=== PATIENT | female | born 1995 | race Caucasian/White ===

== ENCOUNTER 2020-08-06 07:29 | Inpatient (IN) ==
[2020-08-06] MEDS ORDERED: OXYTOCIN 30 UNITS/500 ML BAG IV PRN ×3 (07:31→19:01)
[2020-08-06 07:59] LABS: Hematocrit (blood only) 36.3 % (37-47); Hemoglobin 12.4 g/dL (12.0-16.0); Mean Corpuscular Hemoglobin 27.6 pg (25-34); Mean Corpuscular Volume 80.8 fL (80-100); Mean Platelet Volume 10.9 fL (7.4-10.4); Platelet Count 218 K/uL (130-400); RDW Coefficient of Variation 13.3 % (11.5-14.5); RDW Standard Deviation 38.9 fL (36.4-46.3); Red Blood Count 4.49 M/uL (4.2-5.4)
--- NOTE | 2020-08-06 08:04 | History & Physical Report ---
Date of Service August 06, 2020 Assessment & Plan (1) Post term over 40 weeks: (2) Encounter for induction of labor: admit, iv , labs. cx favorable, start pitocin. fhts categ 1. arom with labor pattern. denies questions and ready to proceed. need covid test. Admission and Anticipated Discharge Date Admission Date: August 06, 2020 History of Present Illness Chief Complaint: planned induction for postdates Primary Care Provider: Jorge Varghese MD 25yo at 40+wks cata presents to L&D with above cc. She has unfavorable cervix and planned postdates induction in am for planned burton ripening balloon this pm. No vb. No rom. +FM. No ctx . PNC c/b sickle cell trait, fob neg PNL rh pos, ri, gbs neg, covid pending. obh: gi gynh: no stds, no abnl paps. Allergies Allergy/AdvReac Type Severity Reaction Status Date / Time No Known Allergies Allergy Unverified 08/06/20 07:45 Home Medications Home Medications Medication Instructions Recorded Confirmed Type prenat.vits,mar,znf-[id number] 1 tab PO DAILY 08/05/20 08/06/20 History [ Vitamin] Patient History Medical History (Updated 08/06/20 @ 08:06 by Jessica Cabrera MD, FACOG) Varicella vaccination Surgical History S/P tonsillectomy S/P wisdom tooth extraction Family History (Updated 12/23/19 @ 09:17 by Elsie Joiner) Grandmother (Paternal) Breast cancer Other Hypertension Sickle cell trait Social History (Updated 12/23/19 @ 08:53 by Elsie Joiner) Smoking Status: Never smoker Hx Alcohol Use: No Hx Substance Use: No Preferred Language: Uzbek Communication Ability: Effective Cleaner Wall Required: No Beliefs That Will Affect Care: None marital status: marital status details: Vance Herbert (29) [phone] Current Living Situation: Spouse Current Living Situation Comment: lives with spouse, dog current occupational status: employed current occupation: RN-medical/oncology [employer] Other Information That Helps Us Care for You: No Feels Safe at Home: Yes Safety Concerns: Feels Safe At This Time Review of Systems no rom, vb. no ctx. +FM. burton balloon in place. Physical Exam Constitutional: WD/WN, vitals as above Respiratory: normal respiratory effort, lungs clear to auscultation Cardiovascular: Rate/Rhythm: regular rate and regular rhythm Gastrointestinal (Abdomen): soft gravid nt Musculoskeletal: no edema nontender calves Neurologic: grossly normal Psychiatric: A+Ox3, euthymic affect Genitourinary: Manual OB Exam: + cervical dilation (4), + cervical effacement (75%) and + station -2 OB Exam Monitor Tracing: + external FHT monitor used (140 mod variability reactive), + external uterine monitor used (irreg), + category I and + normal FHT variability balloon in vagina and deflated and burton removed. Coding Level of Care Code None Diagnoses Post term over 40 weeks O48.0 Encounter for induction of labor Z34.90
[2020-08-06 08:06] LABS: Mean Corpuscular Hgb Conc 34.2 g/dL (32-36)
[2020-08-06] MEDS: LACTATED RINGER'S 1,000 ML IV PRN ×2 (09:02→14:14)
[2020-08-06] MEDS ORDERED: ePHEDrine sulfate 50 MG/ML AMP ONE (13:21)
[2020-08-06] MEDS ORDERED: fentaNYL 2MCG/ML ROPIVACAINE 1.25MG/ML 100 ML BAG EPI ONE (13:21)
[2020-08-06] MEDS ORDERED: fentaNYL citrate 100 MCG/2 ML VIAL ONE (13:21)
[2020-08-06] MEDS ORDERED: BUPIVACAINE 0.25% 30 ML VIAL ONE (13:21)
--- NOTE | 2020-08-06 13:31 | Anesthesiology Consultation ---
Date of Service August 06, 2020 Assessment & Plan (1) Encounter for pre-operative examination: Chart Review Chart Review: Acceptable Risk for Labor Epidural History Height/Weight Height: 5 ft 6 in Weight: 78.018 kg Allergies Allergy/AdvReac Type Severity Reaction Status Date / Time No Known Allergies Allergy Unverified 08/06/20 07:45 Medications Home Medications Medication Instructions Recorded Confirmed Last Taken prenat.vits,mar,sam-apbd-owyno 1 tab PO DAILY 08/05/20 08/06/20 08/05/20 [ Vitamin] Active Medications Generic Name Dose Route Start Last Admin Trade Name Freq PRN Reason Stop Dose Admin Lactated Ringer's 1,000 mls @ 125 mls/hr 08/06/20 07:31 08/06/20 09:02 Lr IV 08/08/20 07:30 125 mls/hr .Q8H PRN Administration L&D Protocol Protocol Oxytocin 30 units in 500 mls @ 9 mls/hr 08/06/20 07:33 08/06/20 12:29 Pitocin IV 08/08/20 07:32 0.54 units/hr .Q24H PRN 9 mls/hr Labor Induction/Augmentation Titration Protocol 0.54 UNITS/HR Past Medical History Medical History Varicella vaccination Past Family History Family History Grandmother (Paternal) Breast cancer Other Hypertension Sickle cell trait Past Surgical History Surgical History S/P tonsillectomy S/P wisdom tooth extraction Social History Smoking Status: Never smoker Hx Alcohol Use: No Hx Substance Use: No substance use type: does not use Physical Exam Vital Signs Last Vital Signs Temp 36.9 C 08/06/20 12:28 Pulse 85 08/06/20 13:11 Resp 18 08/06/20 12:28 BP 127/77 08/06/20 13:11 Testing Laboratory Results 08/06/20 07:46 rapid covid today negative
[2020-08-06] MEDS ORDERED: ONDANSETRON INJ 2 MG/ML 2 ML VIAL IV PRN (14:00)
[2020-08-06] MEDS ORDERED: ePHEDrine sulfate 50 MG/ML AMP IV PRN (14:00)
[2020-08-06] MEDS ORDERED: NALOXONE HCL 0.4 MG/1 ML VIAL/CARP IV PRN (14:00)
[2020-08-06] MEDS ORDERED: fentaNYL 2MCG/ML ROPIVACAINE 1.25MG/ML 100 ML BAG EPI PRN (14:00)
[2020-08-06] MEDS ORDERED: NALOXONE HCL 1 MG in SODIUM CHLORIDE 0.9% 1000ML 1,000 ML IV PRN (14:00)
[2020-08-06] MEDS ORDERED: BENZOCAINE 20% AER SPR 82.5 GM CAN EXT PRN (19:01)
[2020-08-06] MEDS ORDERED: oxyCODONE/ACETAMINOPHEN 5mg/325mg TAB PO PRN (19:01)
[2020-08-06] MEDS ORDERED: ACETAMINOPHEN 325 MG TAB PO PRN (19:01)
[2020-08-06] MEDS ORDERED: HYDROCORTISONE ACETATE 25 MG SUPP PR PRN (19:01)
[2020-08-06] MEDS ORDERED: bisacodyL 10 MG SUPP PR PRN (19:01)
[2020-08-06] MEDS ORDERED: SUPERCREAM 0.870% 15 GM JAR EXT PRN (19:01)
[2020-08-06] MEDS ORDERED: DIPHTHERIA/TETANUS/PERTUSSIS 0.5 ML SYR/VIAL IM ONE (19:01)
--- NOTE | 2020-08-06 21:46 | Delivery Summary ---
Vaginal Delivery Summary Date of Service The patient is a 25-year-old white female who presented for postdates induction. She received a cervical balloon the night prior to her admission. Upon arrival in labor and delivery, her cervix was 4 cm dilated. Pitocin augmentation of her labor was begun. Membranes were ruptured for clear fluid after a contraction pattern had been established. She received effective epidural analgesia. She progressed to full dilation and then pushed effectively over intact perineum for delivery of a viable female . The was vigorous and moving all 4 limbs. The infant was placed on the mother's abdomen for further attention and drying. After 1 minute, the cord was clamped and cut. The placenta was then expressed intact with a three-vessel cord. A first- degree vaginal laceration and a superficial labial laceration were repaired with 3-0 chromic in the usual fashion. Estimated blood loss is 200 cc. Mother and infant were doing well after delivery. bleeding was controlled with dilute Pitocin. [facility] Vaginal Delivery Charge Vaginal Delivery Codes: 25972 global code for the antepartum, delivery, and post-
--- NOTE | 2020-08-06 22:15 | Anesthesia Procedure Note ---
Date of Service August 06, 2020 Anesthesia Post Epidural Note Vital Signs Vital Signs: Temp Pulse Resp BP Pulse Ox 36.7 C 117 H 18 108/63 100 08/06/20 20:54 08/06/20 20:54 08/06/20 20:54 08/06/20 20:54 08/06/20 18:56 Notes Mental Status: alert / awake / arousable and participated in evaluation Nausea / Vomiting: adequately controlled Pain: adequately controlled Airway Patency, RR, SpO2: stable & adequate BP & HR: stable & adequate Hydration State: stable & adequate Neuraxial Anesthesia: was administered and sensory block is resolving Anesthetic Complications: no major complications apparent Epidural: Removed without complications and With tip intact
[2020-08-06] MEDS: DOCUSATE SODIUM 100 MG CAP PO SCH (22:21)
[2020-08-06] MEDS: IBUPROFEN 600 MG TAB PO PRN (23:29)
[2020-08-07] MEDS: IBUPROFEN 600 MG TAB PO PRN ×4 (04:17→21:03)
--- NOTE | 2020-08-07 06:05 | Obstetrical Progress Note ---
Date of Service <Stephen Bang MD - Last Filed: 08/07/20 07:13> August 07, 2020 Assessment & Plan <Stephen Bang MD - Last Filed: 08/07/20 07:13> (1) Spontaneous vaginal delivery: Nilsa is a 25 y/o female who is now PPD #1 following IOL in the setting of postdates with an unfavorable cervix, with subsequent at 40-5/7 weeks. - Feels well today. Eating well, voiding well, ambulating well. - Pain well controlled with ibuprofen 600mg Q4H PRN. - Routine PPD care -- promote OOB, ambulation throughout today - After discharge will have [address] Russo Subjective <Stephen Bang MD - Last Filed: 08/07/20 07:13> Nilsa is a 25 y/o female who is now PPD #1 following IOL in the setting of postdates with an unfavorable cervix, with subsequent at 40-5/7 weeks. Reports feeling well overall this morning. Some abdominal cramping wit well managed on analgesics. Voiding without difficulty. Tolerating meals overnight and able to ambulate some. Endorses passing gas. Some persistent lochia with some improvement this morning. Breast/Bottle feeding. Review of Systems Denies fever, chills, sweats Denies shortness of breath, difficulty breathing, chest pain, palpitations, chest pressure. Denies breast pain. Denies dysuria. Denies headache or changes in vision. Physical Exam <Stephen Bang MD - Last Filed: 08/07/20 07:13> General: Alert, oriented. No acute distress. Cardiac: Regular rate and rhythm, no murmurs/rubs/gallops. Respiratory: Clear to auscultation bilaterally a/p, no wheezes/rales/rhonchi. No increased work of breathing. Symmetrical chest rise. No respiratory distress. Abdomen: Soft, nontender, nondistended. Bowel sounds present. Uterus: Uterine fundus firm, palpable 2 cm below umbilicus. Lower Extremities: No lower extremity edema or swelling. No deep calf pain. Ivana's negative bilaterally. Results & Data ([facility]) <Stephen Bang MD - Last Filed: 08/07/20 07:13> Vital Signs (Past 12 Hours) Vital Signs Temp Pulse Pulse Resp BP BP Pulse Ox 08/07/20 04:25 36.6 C 74 16 97/59 L 97 08/06/20 23:55 36.8 C 102 H 18 111/66 96 08/06/20 21:45 36.8 C 102 H 18 103/66 98 08/06/20 20:54 36.7 C 117 H 18 108/63 08/06/20 20:39 114 H 108/59 L 08/06/20 20:24 98 H 18 110/64 08/06/20 20:09 88 113/63 08/06/20 19:54 102 H 18 114/55 L 08/06/20 19:39 117 H 18 110/64 08/06/20 19:24 106 H 18 113/64 08/06/20 19:09 108 H 18 116/66 08/06/20 18:56 125 H 100 08/06/20 18:54 37.0 C 108 H 18 144/69 H 08/06/20 18:51 115 H 100 08/06/20 18:50 139 H 137/73 08/06/20 18:46 134 H 100 08/06/20 18:41 128 H 100 08/06/20 18:36 136 H 100 08/06/20 18:31 158 H 100 08/06/20 18:26 144 H 100 08/06/20 18:24 132 H 87 L 08/06/20 18:22 142 H 128/66 08/06/20 18:21 135 H 100 08/06/20 18:19 142 H 86 L 08/06/20 18:16 122 H 98 08/06/20 18:12 137 H 93 08/06/20 18:11 152 H 100 08/06/20 18:06 125 H 133/82 99 <Ada Castro MD, FACOG - Last Filed: 08/07/20 08:14> Co-Signing Physician Notes Resident Physician Supervision Note: I interviewed and examined the patient. Discussed with Dr. Bang and agree with findings and plan as documented in the note. Any exceptions or clarifications are listed here: [None] Documented By: Ada Castro MD, FACOG Resident Activity Tracking <Stephen Bang MD - Last Filed: 08/07/20 07:13> Resident Involvement: Resident Care Provided Care Provided: Adult Hospital Medicine and OB Delivery
[2020-08-07 06:57] LABS: Hematocrit (blood only) 30.9 % (37-47); Hemoglobin 10.5 g/dL (12.0-16.0); Mean Corpuscular Hemoglobin 27.3 pg (25-34); Mean Corpuscular Volume 80.5 fL (80-100); Mean Platelet Volume 10.6 fL (7.4-10.4); Platelet Count 193 K/uL (130-400); RDW Coefficient of Variation 13.3 % (11.5-14.5); RDW Standard Deviation 38.3 fL (36.4-46.3); Red Blood Count 3.84 M/uL (4.2-5.4); White Blood Count 16.82 K/uL (4.8-10.8)
[2020-08-07] MEDS: PRENATAL VITAMIN 1 TAB PO SCH (08:21)
[2020-08-07] MEDS: DOCUSATE SODIUM 100 MG CAP PO SCH ×2 (08:21→21:04)
[2020-08-07] MEDS ORDERED: bisacodyL 5 MG TABEC PO SCH (20:00)
[2020-08-08] MEDS: IBUPROFEN 600 MG TAB PO PRN (02:16)
--- NOTE | 2020-08-08 05:55 | Obstetrical Progress Note ---
Date of Service <Stephen Bang MD - Last Filed: 08/08/20 07:22> August 08, 2020 Assessment & Plan <Stephen Bang MD - Last Filed: 08/08/20 07:22> (1) Spontaneous vaginal delivery: Nilsa is a 25 y/o female who is now PPD #2 following IOL in the setting of postdates with an unfavorable cervix, with subsequent at 40-5/7 weeks. - Feels well today. Eating well, voiding well, ambulating well. - Pain well controlled with ibuprofen 600mg Q4H PRN. - Routine PPD care -- promote OOB, ambulation throughout today - After discharge will have [address] Russo - Anticipate d/c today pending peds Subjective <Stephen Bang MD - Last Filed: 08/08/20 07:22> Nilsa is a 25 y/o female who is now PPD #2 following IOL in the setting of postdates with an unfavorable cervix, with subsequent at 40-5/7 weeks. Reports feeling well overall this morning. Some abdominal cramping well managed on analgesics. Voiding without difficulty. Tolerating meals overnight and able to ambulate some. Endorses passing gas. Some persistent lochia with some improvement this morning. Breast feeding without difficulty. Review of Systems Denies fever, chills, sweats Denies shortness of breath, difficulty breathing, chest pain, palpitations, chest pressure. Denies breast pain. Denies dysuria. Denies headache or changes in vision. Physical Exam <Stephen Bang MD - Last Filed: 08/08/20 07:22> General: Alert, oriented. No acute distress. Cardiac: Regular rate and rhythm, no murmurs/rubs/gallops. Respiratory: Clear to auscultation bilaterally a/p, no wheezes/rales/rhonchi. No increased work of breathing. Symmetrical chest rise. No respiratory distress. Abdomen: Soft, nontender, nondistended. Bowel sounds present. Uterus: Uterine fundus firm, palpable 3 cm below umbilicus. Lower Extremities: No lower extremity edema or swelling. No deep calf pain. Ivana's negative bilaterally. Results & Data ([facility]) <Stephen Bang MD - Last Filed: 08/08/20 07:22> Vital Signs (Past 12 Hours) Vital Signs Temp Pulse Resp BP Pulse Ox 08/08/20 00:15 36.7 C 86 16 111/72 98 08/07/20 21:10 36.5 C 77 16 99/58 L 98 <Marzena Phillip MD - Last Filed: 08/08/20 07:53> Co-Signing Physician Notes Resident Physician Supervision Note: I interviewed and examined the patient. Discussed with Dr. Bang and agree with findings and plan as documented in the note. Any exceptions or clarifications are listed here: [None] Documented By: Marzena Phillip MD Resident Activity Tracking <Stephen Bang MD - Last Filed: 08/08/20 07:22> Resident Involvement: Resident Care Provided Care Provided: Adult Hospital Medicine and OB Delivery
[2020-08-08 06:44] LABS: Hematocrit (blood only) 30.6 % (37-47); Hemoglobin 10.3 g/dL (12.0-16.0)
[2020-08-08] MEDS: DOCUSATE SODIUM 100 MG CAP PO SCH (08:22)
[2020-08-08] MEDS: PRENATAL VITAMIN 1 TAB PO SCH (08:22)
== END 2020-08-08 11:20 | disposition home or self-care (01) | DRG 807 ==
LOC: 4S1 07:29 → 4S2 21:41

== ENCOUNTER 2022-04-01 07:37 | Inpatient (IN) ==
--- NOTE | 2022-04-01 07:40 | History & Physical Report ---
Date of Service April 01, 2022 Assessment & Plan (1) Encounter for induction of labor: Plan: 26 yo at EGA 41w0d by LMP presenting for postdate IOL. -Admit to L&D -Vitals reviewed- HDS, afebrile, FHT Category 1 -Pitocin augmentation -AROM when indicated -Epidural available on request -Anticipate expectant management Admission and Anticipated Discharge Date Admission Date: April 01, 2022 History of Present Illness Chief Complaint: Induction of labor Primary Care Provider: Jorge Varghese MD 26 yo at EGA 41w0d by LMP presenting for postdate IOL. Pt began experiencing painful contractions in evening on 03/30, q7 min, lasted for about 5 hours and subsided. Seen in clinic on day prior with cervical dilation 1cm and advised to go to L&D for burton bulb placement that evening for scheduled induction today. Arrived to L&D yesterday evening for burton bulb placement but deferred as she was 3cm dilated. Pt currently notes good FM, no LOF, VB. Reports occasional contractions without clear pattern and no pain/cramping. PNI: -None OBHx: -IOL w- 2019 GynHx: -Last pap smear 2018 wnl -Menstrual cycles q30d -No history of STIs OB Labs: Hemoglobin 11.6 g/dL (12.0-16.0) L 01/04/22 Hematocrit 33.6 % (37-47) L 01/04/22 Mean Corpuscular Volume 85.3 fL (80.0-100.0) 08/18/21 Platelet Count 251 Thousand/uL (140-400) 08/18/21 Rubella IgG Antibody 3.56 Index 08/18/21 HIV (1&2) Ab and P24 Ag, 4th Gener NON-REACTIVE (NON-REACTIVE) 08/18/21 Glucose 1 Hour 50 gm Load 128 mg/dl (70-130) 01/04/22 Maternal Serum Alpha Fetoprotein 42.1 ng/mL 10/13/21 OB Optional Labs: Chlamydia trachomatis RNA NOT DETECTED (NOT DETECTED) 08/18/21 Neisseria gonorrhoeae RNA NOT DETECTED (NOT DETECTED) 08/18/21 Thyroid Stimulating Hormone (TSH) 1.28 uIU/mL (0.30-4.50) 10/31/19 Alpha Fetoprotein Triple Screen SEE NOTE 10/13/21 Labs Reviewed: CF/SMA negative in prior (01/09/20) 08/18/21 Hep B Non reactive RPR Non Reactive Blood Type B POS Antibody Screen NEG Urine NEG/NEG low risk panorama--ak neg afp--ak 28wk labs reviewed Allergies Allergy/AdvReac Type Severity Reaction Status Date / Time No Known Allergies Allergy Verified 03/31/22 08:49 Home Medications Medication Instructions Recorded Confirmed Type prenat.vits,mar,xrg-bhmp-flwgx 1 tab PO DAILY 08/05/20 04/01/22 History Past Med/Surg History Medical History Varicella vaccination Surgical History S/P tonsillectomy S/P wisdom tooth extraction Family History Grandmother (Paternal) Breast cancer Father Skin cancer Hypertension Sickle cell trait Social History Smoking Status: Never smoker Hx Alcohol Use: No Hx Substance Use: No Preferred Language: Armenian Communication Ability: Effective Party Plan Sales Agent Required: No Beliefs That Will Affect Care: None marital status: marital status details: Vance Herbert (31) [phone] Current Living Situation: Spouse and Other Current Living Situation Comment: daughter current occupational status: employed current occupation: RN- [employer] Other Information That Helps Us Care for You: No Feels Safe at Home: Yes Safety Concerns: Feels Safe At This Time Assistive Devices: Glasses Review of Systems Review of Systems: Denies fevers/chills. Denies dyspnea, cough. Denies chest pain. Denies breast pain or discharge. Denies dysuria. Denies headache. Denies back pain. Physical Exam Physical Exam: General: Alert, oriented, no acute distress Cardiac: Regular rate and rhythm, normal S1, S2. No murmurs appreciated. Respiratory: Clear to auscultation b/l with good air flow entry, symmetric chest rise and fall. No wheezes or crackles. No increased work of breathing or accessory muscle use Abdomen: Gravid, soft, nontender. No guarding or CVA tenderness Skin: No rashes or lesions Extremities: Warm, dry, well-perfused with capillary refill <2s b/l. No lower extremity edema, erythema, swelling or calf tenderness b/l Pelvic Exam per Dr. Mark's exam on 03/31, see Dr. Russo's attestation for a dmission pelvic exam 04/01 Dilation: 3 Effacement: 75 Station: -2 EFW- 7-8 pounds FHT Baseline: 150 BPM Variability: Moderate Accelerations: Present Decelerations: Absent Supervising Physician Co-Signing Physician Notes Resident Physician Supervision Note: I interviewed and examined the patient. Discussed with Dr. Chamberlain and agree with findings and plan as documented in the note. Any exceptions or clarifications are listed here: Cervix on re-examination on morning of admission is now 4/75/- 2. Patient requesting AROM to initiate IOL and this was done without difficulty. Documented By: Ada Castro MD, FACOG Resident Activity Tracking Resident Involvement: Resident Care Provided Care Provided: OB Delivery
[2022-04-01] MEDS ORDERED: OXYTOCIN 30 UNITS/500 ML BAG IV PRN ×3 (07:51→17:19)
[2022-04-01 08:23] LABS: Hematocrit (blood only) 35.2 % (37-47); Hemoglobin 11.9 g/dL (12.0-16.0); Mean Corpuscular Hemoglobin 27.4 pg (25-34); Mean Corpuscular Hgb Conc 33.8 g/dL (32-36); Mean Corpuscular Volume 81.1 fL (80-100); Mean Platelet Volume 11.1 fL (7.4-10.4); Platelet Count 197 K/uL (130-400); RDW Coefficient of Variation 13.3 % (11.5-14.5); RDW Standard Deviation 39.2 fL (36.4-46.3); Red Blood Count 4.34 M/uL (4.2-5.4); White Blood Count 9.79 K/uL (4.8-10.8)
[2022-04-01] MEDS: LACTATED RINGER'S 1,000 ML IV PRN ×2 (11:44→14:13)
[2022-04-01] MEDS ORDERED: ePHEDrine sulfate 50 MG/ML AMP ONE (13:21)
[2022-04-01] MEDS ORDERED: fentaNYL citrate 100 MCG/2 ML VIAL ONE (13:22)
[2022-04-01] MEDS ORDERED: fentaNYL 2MCG/ML ROPIVACAINE 1.25MG/ML 100 ML BAG EPI ONE (13:22)
[2022-04-01] MEDS ORDERED: BUPIVACAINE 0.25% 30 ML VIAL ONE (13:22)
[2022-04-01] MEDS ORDERED: SODIUM CHLORIDE 0.9% INJ 10 ML VIAL ONE (13:22)
[2022-04-01] MEDS ORDERED: ONDANSETRON INJ 2 MG/ML 2 ML VIAL IV PRN (13:32)
[2022-04-01] MEDS ORDERED: fentaNYL 2MCG/ML ROPIVACAINE 1.25MG/ML 100 ML BAG EPI PRN (13:32)
[2022-04-01] MEDS ORDERED: ePHEDrine sulfate 50 MG/ML AMP IV PRN (13:32)
[2022-04-01] MEDS ORDERED: diphenhydrAMINE 50 MG/ML VIAL IV PRN (13:32)
[2022-04-01] MEDS ORDERED: NALBUPHINE HCL INJ 10 MG/ML AMP IV PRN (13:32)
[2022-04-01] MEDS ORDERED: NALOXONE HCL 0.4 MG/1 ML VIAL/CARP IV PRN (13:32)
[2022-04-01] MEDS ORDERED: NALOXONE HCL 1 MG in SODIUM CHLORIDE 0.9% 1000ML 1,000 ML IV PRN (13:32)
--- NOTE | 2022-04-01 13:34 | Anesthesiology Consultation ---
Date of Service April 01, 2022 Assessment & Plan (1) Encounter for pre-operative examination: Chart Review Chart Review: Patient NOT seen in Pre Admission Testing and Acceptable Risk for Labor Epidural Consults Requested none History Height/Weight Height: 5 ft 6 in Weight: 81.374 kg Allergies Allergy/AdvReac Type Severity Reaction Status Date / Time No Known Allergies Allergy Verified 03/31/22 08:49 Medications Home Medications Medication Instructions Recorded Confirmed Last Taken prenat.vits,mar,hnu-mbtb-xfbwq 1 tab PO DAILY 08/05/20 04/01/22 03/31/22 09:00 Active Medications Generic Name Dose Route Start Last Admin Trade Name Freq PRN Reason Stop Dose Admin Lactated Ringer's 1,000 mls @ 125 mls/hr 04/01/22 07:51 04/01/22 13:19 Lr IV 04/03/22 07:50 999 mls/hr .Q8H PRN Infusion L&D Protocol Protocol Oxytocin 30 units in 500 mls @ 5 mls/hr 04/01/22 07:58 04/01/22 12:55 Pitocin IV 04/03/22 07:57 0.3 units/hr .Q24H PRN 5 mls/hr Labor Induction/Augmentation Titration Protocol 0.3 UNITS/HR Past Medical History Medical History (Updated 04/01/22 @ 13:34 by Norberto Calderon MD) Varicella vaccination Exercise / Class Metabolic Activity II 4-5 Yardwork/Stairs/Walk up hill Past Family History Family History Grandmother (Paternal) Breast cancer Father Skin cancer Hypertension Sickle cell trait Past Surgical History Surgical History S/P tonsillectomy S/P wisdom tooth extraction Past Anesthesia History No Hx of Anesthesia Complications and No Family Hx of Anesthesia Complications Social History Smoking Status: Never smoker Hx Alcohol Use: No Hx Substance Use: No substance use type: does not use Physical Exam Vital Signs Last Vital Signs Temp 36.4 C L 04/01/22 11:22 Pulse 75 04/01/22 13:55 Resp 18 04/01/22 07:44 BP 113/68 04/01/22 13:55 Pulse Ox 100 04/01/22 13:54 Testing Laboratory Results 04/01/22 08:07
[2022-04-01] MEDS ORDERED: HYDROCORTISONE ACETATE 25 MG SUPP PR PRN (17:19)
[2022-04-01] MEDS ORDERED: oxyCODONE/ACETAMINOPHEN 5mg/325mg TAB PO PRN (17:19)
[2022-04-01] MEDS ORDERED: bisacodyL 10 MG SUPP PR PRN (17:19)
[2022-04-01] MEDS ORDERED: DIPHTHERIA/TETANUS/PERTUSSIS 0.5 ML SYR/VIAL IM ONE (17:19)
[2022-04-01] MEDS ORDERED: BENZOCAINE 20% AER SPR 82.5 GM CAN EXT PRN (17:19)
[2022-04-01] MEDS ORDERED: ACETAMINOPHEN 325 MG TAB PO PRN (17:19)
--- NOTE | 2022-04-01 17:46 | Delivery Summary ---
Vaginal Delivery Summary Date of Service April 01, 2022 Vaginal Delivery Summary and 1st Degree LAC Patient is a 26-year-old 2 para 1-0-0-1 female who presents at 41 weeks for induction of labor because of postterm . Her initial cervix cervical exam was 4 cm dilation and patient requested AROM to initiate the induction. After approximately 2 hours Pitocin augmentation was begun to establish a better contraction pattern. She received effective epidural analgesia. She progressed to full dilation with the urge to push. She pushed through 1 contraction for delivery of a viable male infant. After the head delivered the left hand presented and was delivered prior to delivering the shoulders. The rest the infant delivered easily and was placed on the mother's abdomen for further attention and drying. After 1 minute, the cord was clamped and cut. After obtaining cord blood, the placenta was expressed intact with a three-vessel cord. First-degree perineal laceration was repaired with 3-0 chromic in the usual fashion. Patient also requested removal of a portion of the hymenal ring which have become problematic since her last delivery. A Lo stitch was placed through the base of the hymenal tag and the remaining tissue was removed with scissors distal to this stitch. Hemostasis states was noted to be excellent. bleeding was controlled with dilute Pitocin and fundal massage. Estimated blood loss 200 cc. Mother and were doing well after delivery. [facility] Vaginal Delivery Charge Delivery Type Details: and 1st Degree LAC
--- NOTE | 2022-04-01 18:20 | Anesthesia Procedure Note ---
Date of Service April 01, 2022 Anesthesia Post Epidural Note Vital Signs Vital Signs: Temp Pulse Resp BP Pulse Ox 36.9 C 62 20 114/72 100 04/01/22 15:00 04/01/22 18:09 04/01/22 16:30 04/01/22 18:09 04/01/22 17:15 Pain Intensity Bilateral Abdomen: Pain Intensity: 4 Notes Mental Status: alert / awake / arousable and participated in evaluation Patient Amnestic to Procedure: No Nausea / Vomiting: adequately controlled Pain: adequately controlled Airway Patency, RR, SpO2: stable & adequate BP & HR: stable & adequate Hydration State: stable & adequate Neuraxial Anesthesia: was administered and sensory block is resolving Anesthetic Complications: no major complications apparent and Pt Satisfied with anesthetic care Epidural: Removed without complications and With tip intact
[2022-04-01] MEDS: DOCUSATE SODIUM 100 MG CAP PO SCH (20:06)
[2022-04-01] MEDS: IBUPROFEN 600 MG TAB PO PRN (20:06)
[2022-04-02] MEDS: IBUPROFEN 600 MG TAB PO PRN ×4 (02:11→17:02)
--- NOTE | 2022-04-02 06:51 | Obstetrical Progress Note ---
Date of Service April 02, 2022 Assessment & Plan (1) Encounter for care and examination after delivery: satisfactory exam continue current care plan would like to go home this evening if baby discharged Subjective Ambulation: ambulating normally Voiding: no voiding problems Passing Gas:: Yes Diet Tolerance:: regular diet Lochia:: Small Feeding Type:: breast feeding Review of Systems All systems reviewed & are unremarkable except as noted in HPI & below Physical Exam Constitutional WD/WN, vitals as above Psychiatric A+Ox3, euthymic affect Genitourinary OB Exam Abdomen: + fundal height Fundus: + firm and + relation to umbilicus (1 below) Results & Data ([facility]) Vital Signs (Past 12 Hours) Vital Signs Temp Pulse Pulse Resp BP BP Pulse Ox 04/02/22 03:41 98.1 F 72 18 92/63 L 99 04/01/22 23:00 98.4 F 70 20 103/69 97 04/01/22 19:40 98.4 F 93 H 20 109/71 98 04/01/22 19:09 82 16 124/65 04/01/22 18:54 96 H 121/73
[2022-04-02 07:01] LABS: Hematocrit (blood only) 32.3 % (37-47); Mean Corpuscular Hemoglobin 27.7 pg (25-34); Mean Corpuscular Hgb Conc 34.1 g/dL (32-36); Mean Corpuscular Volume 81.4 fL (80-100); Mean Platelet Volume 11.3 fL (7.4-10.4); Platelet Count 186 K/uL (130-400); RDW Coefficient of Variation 13.3 % (11.5-14.5); RDW Standard Deviation 39.5 fL (36.4-46.3); Red Blood Count 3.97 M/uL (4.2-5.4); White Blood Count 12.14 K/uL (4.8-10.8)
[2022-04-02] MEDS ORDERED: PRENATAL VITAMIN 1 TAB PO SCH (08:00)
[2022-04-02] MEDS: DOCUSATE SODIUM 100 MG CAP PO SCH (08:22)
[2022-04-02] MEDS ORDERED: bisacodyL 5 MG TABEC PO SCH (20:00)
== END 2022-04-02 18:00 | disposition home or self-care (01) | DRG 807 ==
LOC: 4S1 07:37 → 4E2 19:56